=== PATIENT | female | born 1945 | race African-American/Black ===

== ENCOUNTER 2017-10-28 04:51 | Emergency (ER) | payer MEDICARE, MEDICAID ==
[~2017-10-28] VITALS: Ht 157.5 cm; Wt 75.0 kg
[~2017-10-28 04:51] MED LIST: ADVAIR INH; LEVO75TA7 PO; LIRA0.6P2 SUBCUT; NOVOLIN SUBCUT; OMEP20CA4 PO; PRED5TAB PO; VALS1TAB2 PO
[2017-10-28] MEDS ORDERED: ONDANSETRON HCL 4MG/2ML VIAL IV STA (05:59)
[2017-10-28] MEDS ORDERED: MORPHINE SULFATE 4 MG/ML CPJ (NOT FOR IM USE) IV STA (05:59)
[2017-10-28] MEDS ORDERED: SODIUM CHLORIDE 0.9% 1,000 ML IV ONE (05:59)
[2017-10-28 06:14] LABS: HEMATOCRIT. 30.8 % (36.0-48.0); MEAN CORPUSCULAR HEMOGLOBIN 24.5 pg (28.0-32.0); MEAN CORPUSCULAR VOLUME 75.5 fL (81.0-99.0); MEAN PLATELET VOLUME 8.1 fl (7.4-10.4); PLATELET 311 x1000/uL (130-400); RED BLOOD CELL COUNT 4.07 mill/uL (4.2-5.4)
[2017-10-28] MEDS ORDERED: MORPHINE SULFATE 10 MG/ML CPJ IV ONE (06:15)
[2017-10-28 06:28] LABS: D-DIMER 1.53 mg/L FEU (<0.50); PROTHROMBIN TIME 10.8 sec (9.4-11.6)
[2017-10-28 06:33] LABS: CARBON DIOXIDE 25 mEq/L (21-32); CHLORIDE 109 mEq/L (98-107); TROPONIN I 0.06 ng/mL (0.00-0.04)
[2017-10-28 07:10] LABS: NUCLEATED RED BLOOD CELLS 11 /100 WBC; PLATELET ESTIMATE NORMAL
[2017-10-28] MEDS ORDERED: ENALAPRIL 2.5MG/2ML VIAL 2ML IV ONE (09:00)
[2017-10-28 13:04] LABS: CLARITY URINE CLEAR (CLEAR); COLOR URINE YELLOW (YELLOW); GLUCOSE URINE NEGATIVE (NEGATIVE); KETONES URINE NEGATIVE (NEGATIVE); LEUKOCYTE ESTERASE URINE 1+ (NEGATIVE); NITRITE URINE NEGATIVE (NEGATIVE); OCCULT BLOOD URINE NEGATIVE (NEGATIVE); PH URINE 5.5 (4.5-8.0); PROTEIN URINE TRACE (NEGATIVE); SPECIFIC GRAVITY URINE 1.016 (1.005-1.030); UROBILINOGEN URINE 0.2 E.U./dL (0.2-1.0)
[2017-10-28] MEDS ORDERED: IOHEXOL-350 100 ML BOTTLE ONE (14:39)
[2017-10-28] MEDS ORDERED: MORPHINE SULFATE 1MG/ML 1ML INJ SYR(NEO) IV ONE (16:15)
[2017-10-28] MEDS ORDERED: MORPHINE SULFATE 10 MG/ML CPJ IV NR (16:18)
[2017-10-28 16:51] VITALS: BP 145/70
== END 2017-10-28 18:00 | disposition home or self-care (01) ==
LOC: ER 04:51 → ENRESERV 08:27 → CANRESERV 08:27 → ENRESERV 08:40 → CANRESERV 08:40 → ENRESERV 08:54 → CANRESERV 08:54 → CANBEDREQ 17:20 → ER 18:00
DX: D57.00 Hb-SS disease with crisis, unspecified (principal); K80.20 Calculus of gallbladder without cholecystitis without obstruction; E11.65 Type 2 diabetes mellitus with hyperglycemia; I49.1 Atrial premature depolarization; I10 Essential (primary) hypertension; K76.0 Fatty (change of) liver, not elsewhere classified; J45.909 Unspecified asthma, uncomplicated; E03.9 Hypothyroidism, unspecified; D71 Functional disorders of polymorphonuclear neutrophils; Z79.4 Long term (current) use of insulin; Z96.649 Presence of unspecified artificial hip joint; Z98.890 Other specified postprocedural states; Z88.2 Allergy status to sulfonamides
CPT/HCPCS: 36415; 36569; 71010; 71275; 74174; 76705; 76937; 77001; 80053; 81001; 83605; 83690; 83880; 84484; 85025; 85044; 85379; 85610; 87040; 87086; 93005; 96361; 96374; 96375; 96376; 99285; C1725; J2270; J2405; J3490; J7030; Q9967